=== PATIENT | female | born 1965 | race Caucasian/White ===

== ENCOUNTER 2018-06-20 03:28 | Emergency (ER) | payer MEDICAID ==
[~2018-06-20] VITALS: Ht 152.4 cm; Wt 65.3 kg
[~2018-06-20 03:28] MED LIST: COLACE100 MG PO; FLO4 PO; METFORMIN HCL850 MG PO; NOR10T PO
[2018-06-20 03:33] VITALS: Ht 152.4 cm; Wt 65.3 kg
[2018-06-20 06:28] VITALS: BP 110/81
== END 2018-06-20 06:17 | disposition home or self-care (01) ==
LOC: ED 03:28
DX: M75.92 Shoulder lesion, unspecified, left shoulder (principal); E11.9 Type 2 diabetes mellitus without complications; F32.9 Major depressive disorder, single episode, unspecified
CPT/HCPCS: J1885

== ENCOUNTER 2018-11-09 13:10 | Emergency (ER) | payer MEDICAID ==
[~2018-11-09] VITALS: Ht 152.4 cm; Wt 65.3 kg
[2018-11-09 13:16] VITALS: Ht 152.4 cm; Wt 65.3 kg
[2018-11-09 14:49] LABS: PLATELET COUNT 318 x10^3mcL (130-400); RED CELL DISTRIBUTION WIDTH 12.9 % (11.5-14.5)
[2018-11-09 14:58] LABS: CALCIUM 9.4 mg/dL (8.5-10.1); CARBON DIOXIDE 24.4 mmol/L (21-32); CHLORIDE SERUM 106 mmol/L (98-107); CREATININE SERUM 0.8 mg/dL (0.6-1.0); GFR1 > 60 mL/min; GLUCOSE SERUM 210 mg/dL (74-106); POTASSIUM SERUM 4.1 mmol/L (3.5-5.1); SODIUM SERUM 143 mmol/L (136-145)
[2018-11-09 15:05] LABS: ALBUMIN 3.7 g/dL (3.4-5.0); ALKALINE PHOSPHATASE 92 U/L (46-116); ALT/SGPT 92 U/L (14-59); AST/SGOT 59 U/L (15-37); BILIRUBIN TOTAL 0.3 mg/dL (0.20-1.00); TOTAL PROTEIN, SERUM 7.6 g/dL (6.4-8.2)
[2018-11-09 15:25] VITALS: BP 139/85
== END 2018-11-09 15:25 | disposition short-term general hospital (02) ==
LOC: ED 13:10
PROVIDERS: Emergency Medicine
DX: I63.9 Cerebral infarction, unspecified (principal); E11.9 Type 2 diabetes mellitus without complications; F32.9 Major depressive disorder, single episode, unspecified
CPT/HCPCS: 36415; 82962

== ENCOUNTER 2018-12-03 10:32 | Emergency (ER) | payer MEDICAID ==
[~2018-12-03] VITALS: Ht 152.4 cm; Wt 65.8 kg
[2018-12-03 10:50] VITALS: Ht 152.4 cm; Wt 65.8 kg
[2018-12-03 14:43] VITALS: BP 114/73
== END 2018-12-03 14:43 | disposition home or self-care (01) ==
LOC: ED 10:32
DX: R10.30 Lower abdominal pain, unspecified (principal); M54.5 Low back pain; E11.9 Type 2 diabetes mellitus without complications
CPT/HCPCS: J1885